=== PATIENT | male | born 1960 | race Caucasian/White ===

== ENCOUNTER 2017-09-24 10:33 | Day surgery (SDC) | payer OTHER ==
[~2017-09-24] VITALS: Ht 167.6 cm; Wt 73.9 kg
[~2017-09-24 10:33] MED LIST: ABAC1TAB9 PO; FAMO40TA52 PO; LISI-313 PO; RALT400T4 PO; TEMA15CA PO
[2017-09-24 11:32] VITALS: Ht 167.6 cm; Wt 73.9 kg
[2017-09-24] MEDS ORDERED: BUSP10TA2 PO (11:35)
[2017-09-24 11:45] VITALS: BP 115/81; PULSE 77; RESP 12
--- NOTE | 2017-09-24 12:48 | OPPN ---
Date/Time of Note Date/Time of Note DATE: 09/24/17 TIME: 12:43 Proc Note GI Procedure Date 09/24/17 Indication: screening/surveillance Pre-procedure Diagnosis r/o colon polyps Post-procedure Diagnosis sessile polyp 2mm prox d colon hemorrhoids Procedure Performed: Colonoscopy Surgeon see signature line Director Technical none Anesthesia Type: MAC Anesthesiologist: DINO DRAPER MD Tourniquet Time none EBL none Transfusion required none Biopsy 1: colon polyp Grafts/Implants none Tubes/Drains none Complication(s) none Disposition: home Procedure Description colon polyp 3mm sessile prox desg colon hemorrhoids JOSÉ STRANGE MD Sep 24, 2017 12:48
--- NOTE | 2017-09-24 13:00 | GILP ---
DATE OF PROCEDURE: PROCEDURE: Colonoscopy and biopsy. PREOPERATIVE DIAGNOSIS: Patient presenting for screening colonoscopy to rule out colon polyps. POSTOPERATIVE DIAGNOSES: 1. A 3 mm polyp noted in the proximal descending colon. This was removed with a cold biopsy forcep s. 2. Minimal internal and external hemorrhoids. DESCRIPTION OF PROCEDURE: After informed written consent was obtained, the patient was asked to lie on the left lateral side. Intravenous anesthesia was given by anesthesiologist, Dr. Falk. When th e patient became somnolent, Olympus video colonoscope was introduced into the rectum and advanced al l the way to the cecum. The entire colon appeared perfectly normal; however, on the way out, a 3 mm sessile polyp was noted in the proximal descending colon. This was removed with help of a cold bio psy forceps. Endoscope at this time was withdrawn and on the way out, minimal internal hemorrhoids and minimal external hemorrhoids were noted and the procedure was terminated. PLAN: Recommend wait for the pathology report. Dictated By: JOSÉ CASTELLANOS/LENNY Conf#: [id number] DID#: [id number]
[2017-09-24 13:17] VITALS: BP 147/96; PULSE 72; RESP 17
[2017-09-24] MEDS ORDERED: PROPOFOL 40 ML ONE (13:28)
== END 2017-09-24 16:54 | disposition home or self-care (01) ==
LOC: GIL 10:33
PROVIDERS: ATTEND Internal Medicine Gastroenterology
DX: D12.4 Benign neoplasm of descending colon (principal); K64.8 Other hemorrhoids; I10 Essential (primary) hypertension
CPT/HCPCS: 45380; Z7610; 88305